=== PATIENT | male | born 1970 | race Two or more races ===

== ENCOUNTER 2019-06-15 13:14 | Emergency (ER) | payer SELFPAY ==
[~2019-06-15] VITALS: Ht 162.6 cm; Wt 72.6 kg
[2019-06-15] MEDS ORDERED: cloNIDine HCL 0.1 MG TAB PO ONE (15:45)
[2019-06-15] MEDS ORDERED: SODIUM CHLORIDE 0.9% 1,000 ML IV ONE (16:36)
[2019-06-15] MEDS ORDERED: ONDANSETRON HCL 4 MG/2 ML VIAL IV ONE (16:45)
[2019-06-15] MEDS ORDERED: MORPHINE SULF INJ 2 MG/ML SYRINGE 1ML IV ONE (16:45)
[2019-06-15] MEDS ORDERED: TETANUS-DIPTH-ACEL PERTUSSIS 0.5ML SYRG IM ONE (16:45)
[2019-06-15] MEDS ORDERED: cefTRIAXone 1GM/50ML D5W 50 ML IV ONE (16:45)
[2019-06-15 18:23] VITALS: BP 111/77
== END 2019-06-15 19:00 | disposition short-term general hospital (02) ==
LOC: ER 13:23
DX: S68.522A Partial traumatic transphalangeal amputation of left thumb, initial encounter (principal); X58.XXXA Exposure to other specified factors, initial encounter; Y93.89 Activity, other specified; Y99.8 Other external cause status; Y92.89 Other specified places as the place of occurrence of the external cause
CPT/HCPCS: 73130; 90471; 90715; 96365; 96375; 99285; J0696; J2270; J2405